=== PATIENT | female | born 1990 | race Caucasian/White ===

== ENCOUNTER 2018-08-15 07:55 | Inpatient (IN) ==
[~2018-08-15 07:55] MED LIST: Famotidine 20 MG/2 ML VIAL IVP PRN; Metoclopramide 10 MG/2 ML VIAL IVP PRN; Naloxone 0.4 MG/ML INJ IVP PRN; Ondansetron 4 MG/2 ML VIAL IVP PRN
[2018-08-15] MEDS ORDERED: Ringers Solution, Lactated 1,000 ML IVC SCH (08:00)
[2018-08-15 08:23] LABS: Basophils % 0.3 %; Eosinophils # 0.1 K/mcL (0.0-0.6); Eosinophils % 0.9 %; Hematocrit 31.1 % (35.3-44.9); Hemoglobin 9.5 g/dL (11.5-15.4); Immature Granulocytes % 1.1 % (0-4); Lymphocytes # 2.1 K/mcL (0.6-4.6); Lymphocytes % 14.6 %; Mean Corpuscular HGB Conc 30.5 g/dL (31.6-35.5); Mean Corpuscular Hemoglobin 22.8 pg (28.0-33.3); Mean Corpuscular Volume 74.8 fL (83.0-100.0); Mean Platelet Volume 10.7 fL (9.4-12.4); Monocytes # 1.4 K/mcL (0.0-1.3); Monocytes % 9.8 %; Neutrophils # 10.4 K/mcL (1.6-8.9); Platelet Count 248 K/mcL (140-400); Red Blood Count 4.16 M/mcL (3.82-4.97); Red Cell Distribution Width 16.1 % (11.5-14.5); Segmented Neutrophils % 73.3 %; White Blood Count 14.2 K/mcL (4.3-11.1)
[2018-08-15] MEDS ORDERED: Penicillin G Potassium 5,000,000 UNIT in 0.9 % Sodium Chloride Mini Bag 100 ML IVPB ONE (09:02)
[2018-08-15 09:05] LABS: Amphetamine Screen,Urine Negative ng/mL (Cutoff=1000); Barbiturate Screen,Urine Negative ng/mL (Cutoff=200)
[2018-08-15 09:06] LABS: Benzodiazepines Screen,Urine Negative ng/mL (Cutoff=300); Cannabinoid Screen,Urine Negative ng/mL (Cutoff = 50); Cocaine Screen,Urine Negative ng/mL (Cutoff= 300); Opiate Screen,Urine Negative ng/mL (Cutoff=300); Phencyclidine Screen,Urine Negative ng/mL (Cutoff=25)
[2018-08-15] MEDS ORDERED: Epidural Premix (fent/bupiv) 110 ML EP SCH (09:15)
[2018-08-15] MEDS ORDERED: *HR* FentaNYL (PF) 100 MCG/2 ML VIAL ONE (09:23)
[2018-08-15] MEDS ORDERED: Bupivacaine-MPF 0.25% 10 ML VIAL ONE (09:23)
[2018-08-15] MEDS ORDERED: Epidural Premix (fent/bupiv) 110 ML EP ONE (09:28)
--- NOTE | 2018-08-15 10:09 | Anesthesia Evaluation PreOp ---
Date of Encounter: 08/15/18 Time of Encounter: 09:13 - Past History Planned Operation: labor epidural Cardiac History: Denies any Significant Hx Pulmonary History: Former smoker (only socially smoked.) OLERICULTURIST History: Denies Any Significant HX Other Medical History: Diabetes Type II (gestational DM- diet controlled.), Other (anemia.) Anesthesia History: No Prior Anesthetic Complications, Past Anesthesia (tonsillectomy, pelvic exp. laparoscopies x2, wisdom teeth. No problems with GA. Had previous epidural x1 with last , no problems. No FHAP.) : Yes Alcohol Use: none Drug use: none Medications and Allergies Vit Calc,Iron,Folic [ Vitamins] 1 tab PO DAILY 12/30/15 [History] Ferrous Sulfate [Iron] 325 mg PO DAILY 08/15/18 [History] Allergy/AdvReac Type Severity Reaction Status Date / Time No Known Allergies Allergy Verified 12/30/15 14:51 - Meds/Allergy Pre-op Review Medications Reviewed: Yes Allergies Reviewed: Yes Beta Blockers on Current Med List: No Anesthesia Results - Labs 08/15/18 08:00 Anesthesia Exam 122/78, 72, 16. FHTs 150s. Height: 5'3" Weight: 87kg NPO (# of Hours): 6 Pain Scale: 6 Pain Scale Used: Numeric (1 - 10) - HEENT Pupil (Motor): Pupils equal Mallampati: II Teeth: Normal Oral Opening: Greater than 3 - OLERICULTURIST LOC: Oriented OLERICULTURIST Motor: Normal RUE, Normal LUE, Normal RLE, Normal LLE, Normal Face OLERICULTURIST Sensory: Normal: RUE, LUE, RLE, LLE, Face - Cardiac Rhythm: Regular - Pulmonary Breath Sounds: bilateral Clear Respiratory Effort: Symmetrical Anesthesia Assess/Plan ASA Score: 2 Level of consciousness: Cooperative, Oriented, Tranquil Anesthetic Plan: Epidural Monitoring Plan: Standard Monitors
--- NOTE | 2018-08-15 10:14 | Anesthesia Procedures ---
Date of Encounter: 08/15/18 Time of Encounter: 09:29 Procedures: Anesthesia - Epidural/Spinal Patient ID/Chart reviewed: Yes Patient examined: Yes OB Eval: Gestational age: 39 OB Eval: : 3 OB Eval: Hx Para: 1 OB Eval: Dilated at (cm): 5 OB Eval: Contractions: Non-stressed pattern Consent Obtained: Yes Supplemental Oxygen: None/Room Air Site Prep: Aseptic Technique, Sterile prep and drape, 0.5% Chlorhexidine/Alcohol Patient position: upright Local Anesthetic: Lidocaine 1% Amount of Local Anesthetic used: 3 Touhy Needle Gauge: 18 Touhy Needle Depth (cm): 6 Catheter Depth at Skin (cm): 12 Test Dose (1.5% Lido + Epi): Volume given (mls): 3 Test Dose Result: Negative Loading Dose: 0.25% Marcaine (mls): 8 Loading Dose: Fentanyl (mcg): 100 Loading Dose Administered: Thru Catheter Infusion Med: 0.125% Bupivacaine w/ 2 mcg/ml Fentanyl Infusion Rate (mls/hr): 15 (demand 4ml q 20 mins. x2 per hour.) Catheter Secured in Place: Tegaderm, Tape Interspace Used: L3-L4 Loss of Resistance (DEL): Yes Blood: No CSF: No Paresthesia: No Vitals + FHT's: Vital Signs Time 0929 0946 0950 0955 1000 BP 122/76 128/68 112/64 113/65 117/74 Pulse 72 81 77 93 94 FHTs 150 150 150 150 150
--- NOTE | 2018-08-15 11:44 | OB/GYN History & Physical ---
Date of Encounter: 08/15/18 Time of Encounter: 11:32 Assessment and Plan (1) Spontaneous onset of labor Current visit: Yes Status: Acute Pt was 4cm upon arrival to triage and progressed to 5cm quickly. She then received an epidural. Admit for expectant managment. PCN for GBS ppx. Anticipate . Admission in consultation with Dr. Hughes who is present in labor and delivery if needed. (2) 39 weeks gestation of Current visit: No Status: Acute (3) GBS (group B Streptococcus carrier), +RV culture, currently Current visit: Yes Status: Acute (4) Gestational diabetes Current visit: Yes Status: Acute Qualifiers: Gestational diabetes mellitus control: diet-controlled Trimester: third trimester Qualified Code(s): O24.410 - Gestational diabetes mellitus in , diet controlled (5) Anemia Current visit: Yes Status: Acute hgb 9.5 on admission Qualifiers: Anemia type: iron deficiency Iron deficiency anemia type: other iron deficiency Qualified Code(s): D50.8 - Other iron deficiency anemias History of Present Illness Chief complaint: labor HPI: Ms. Dior is a 28 year old female presenting at 39w2d with c/o contractions. She also reports a small gush of clear fluid earlier this am but no continued leaking. She denies bleeding or other complaints. She reports the contractions started last evening and woke her early this morning when they became stronger and more frequent. This has been complicated by GDMA1 and anemia. She reports her glucose has been well controlled. She has been ta jo iron for the anemia and denies s/sx today. B postive Rubella immune Serologies negative GBS POSITIVE Past Med Surg Social Fam HX - Past Medical History Medical history: no medical history Additional medical history: pelvic adhesions. pevic pain in female Psychiatric history: no psych history - Past Surgical History Additional surgical history: wisdom teeth removed, tonsillectomy, lap surgery to remove scar tissue around ovary x2 2013, 2014 - Social History Smoking Status: Never smoker Smokeless Tobacco Status: No Alcohol use: none Drug use: none - Family History Mother Adopted: No Living Status: Still Living Hx Family Cardiac Disorders: Yes (HTN) Hx Family Respiratory Disorders: No Hx Family Cancer: No Hx Family GI Disorders: No Hx Family Endocrine Disorder: No Hx Family Neuromuscular Disorders: No Hx Family Neurologic Disorders: No Hx Family HEENT Disorders: No Hx Family Autoimmune Disorders: No Obstetrical History - Pregnancies : 3 Para: 1 Term: 1 : 0 Ab's: 1 Livin - History/Complications History/Complications: First and was uncomplicated Medications and Allergies Vit Calc,Iron,Folic [ Vitamins] 1 tab PO DAILY 12/30/15 [History] Ferrous Sulfate [Iron] 325 mg PO DAILY 08/15/18 [History] Allergy/AdvReac Type Severity Reaction Status Date / Time No Known Allergies Allergy Verified 12/30/15 14:51 Review of System OB All systems PM: reviewed and no additional remarkable complaints except as stat ed Exam - Constitutional Constitutional: well developed, well nourished, no acute distress - HEENT HEENT: Mucus Membranes Moist - Lungs Respiratory exam: CTAB - Cardiovascular Cardiovascular exam: RRR, +S1, +S2 - Abdomen Abdomen: Present: gravid (EFW 50%tile at 34weeks by US), non tender - Extremities Extremities exam: normal inspection - Vulva Vulva: bilateral: normal - Cervix Dilation: 9 Effacement: 100 - Anus/Rectum Anus/Rectum: Present: normal perianal skin Results Result Diagrams: 08/15/18 08:00 Abnormal lab results WBC 14.2 K/mcL (4.3-11.1) H 08/15/18 08:00 Hgb 9.5 g/dL (11.5-15.4) L 08/15/18 08:00 Hct 31.1 % (35.3-44.9) L 08/15/18 08:00 MCV 74.8 fL (83.0-100.0) L 08/15/18 08:00 MCH 22.8 pg (28.0-33.3) L 08/15/18 08:00 MCHC 30.5 g/dL (31.6-35.5) L 08/15/18 08:00 RDW 16.1 % (11.5-14.5) H 08/15/18 08:00 10.4 K/mcL (1.6-8.9) H 08/15/18 08:00 1.4 K/mcL (0.0-1.3) H 08/15/18 08:00 All other labs normal. - VTE Reasons for not Prescribing Prophylaxis: Treatment not Indicated - Low risk for VTE
[2018-08-15] MEDS ORDERED: Penicillin G Potassium 2,500,000 UNIT in 0.9 % Sodium Chloride 100 ML IVPB SCH (13:00)
--- NOTE | 2018-08-15 14:03 | OB Labor Progress Note ---
Date of Encounter: 08/15/18 Time of Encounter: 14:00 Labor Progress Note - Subjective Subjective: Pt comfortable with epidural. She denies any complaints at this time. - Vital Signs Vital Signs: VSS - Cervix Cervix: 9/100/0 - Heart Tones Heart Tones: Category I - P[place]: 1-5 minutes - Interventions Interventions: AROM for moderate amount MSF, Pt repositioned to left lateral with peanut ball - Plan Plan: Continue to monitor and reposition frequently. Anticipate .
--- NOTE | 2018-08-15 15:59 | OB/GYN Procedure Note ---
Delivery - Delivery Date: 08/15/18 Provider: Rebekah Jacobs Intrapartum events: meconium Delivery induction: none Delivery augmentation: rupture of membranes Delivery monitor: external FHT, external uterine Anesthesia: epidural Quantitated Blood Loss: 100 - Infant (s) Infant A Delivery Date: 08/15/18 Infant Delivery Time: 15:37 Presentation: vertex Position: JULIANN Route of delivery: Gender: Male Viability: Viable Pounds: 7 Ounces: 10 Weight Gram: 3.46 kg at 1 minute: 8 at 5 mins: 9 Shoulder Dystocia: not encountered Specimens collected: cord blood Placenta: spontaneous Cord: nuchal cord (x1), 3 umbilical vessels, nuchal reduced - Repair Episiotomy: none Laceration Description: None - Complications Delivery complications: none Delivery comments: Pt presented in active labor and received an epidural and AROM. CNM called to room with pt complete and +2 station. She then pushed effectively to for viable male "Juan Carlos" weighing 7lbs 10oz with apgars 8 at one minute and 9 at five minutes. Then was placed on the mother's abdomen and was stimulated and bulb suctioned per nursery staff. After pulsations ceased the cord was doubly clamped and cut by the father and the placenta delivered spontaneous and intact (samantha). No lacerations noted upon inspection. EBL 100ml. Mother and baby stable in room following . FOB & 2 other family members present & supportive. - Disposition Mom disposition: stable in LDR disposition: stable in LDR
[2018-08-15] MEDS ORDERED: Oxytocin 20 units/ LR 1000 mL 20 UNIT/1,000 ML BAG IVC ONE (18:14)
[2018-08-15] MEDS ORDERED: Acetaminophen 325 MG TABLET PO PRN (19:24)
[2018-08-15] MEDS ORDERED: Lanolin 7 G OINT...G. TP PRN (19:24)
[2018-08-15] MEDS ORDERED: Oxytocin 20 units/ LR 1000 mL 20 UNIT/1,000 ML BAG IVC SCH (19:24)
[2018-08-15] MEDS ORDERED: Benzocaine/Menthol 56 GM AEROSOL SPRAY TP PRN (19:24)
[2018-08-15] MEDS: Ibuprofen 600 MG TABLET PO PRN (20:36)
[2018-08-16] MEDS: Ibuprofen 600 MG TABLET PO PRN ×3 (02:41→15:35)
[2018-08-16 08:11] VITALS: BP 115/71
[2018-08-16] MEDS ORDERED: Prenatal Vit/FA 1 EACH TABLET PO SCH (09:00)
--- NOTE | 2018-08-16 09:09 | Discharge Summary ---
Date of Encounter: 08/16/18 Time of Encounter: 09:04 - Discharge Diagnosis (1) Status post vaginal delivery Priority: Primary Status: Acute Comments: 28 y/o s/p at 39 weeks - one day reports recovering well . She sta shandra appetite returned better than with previous and toleratine regular diet. Denies BM but positive flatus. Bleeding slowed to less than when on progesterone g with out large clots. She reports history of chronic lower back pain treated by chiropractor and since epidural feeling that "back needs to pop" . She is breast feeding well. (2) Positive GBS test Priority: Secondary Status: Resolved Comments: GBS test positive treated with PCN x2 in delivery (3) Anemia Priority: Secondary Status: Acute Comments: Iron def anemia with HgB 9.5 before delivery - continue iron supplement Qualifiers: Anemia type: iron deficiency Iron deficiency anemia type: other iron deficiency Qualified Code(s): D50.8 - Other iron deficiency anemias (4) Breast feeding status of mother Priority: Primary Status: Acute Comments: Breast feeding well when baby wake. Pump already at home - support as needed (5) Chronic back pain Priority: Secondary Status: Acute Comments: Chronic low back pain worse after epidural with modest improvement with NSAIDs. - I attempted OB roll with auditory pop but minim al immediate improvement in symptoms - patient plans to follow up with PCP and chiropractor Qualifiers: Back pain location: low back pain Back pain laterality: right Sciatica presence: without sciatica Qualified Code(s): M54.5 - Low back pain; G89.29 - Other chronic pain - Discharge Medications Prescriptions: New Docusate [Colace] 100 mg PO BID #60 capsule Ibuprofen [Motrin] 600 mg PO Q6HR PRN #60 tablet PRN Reason: Cramping Breast Pump [BREAST PUMP] 1 each .ROUTE AD #1 each Continued Vit Calc,Iron,Folic [ Vitamins] 1 tab PO DAILY Ferrous Sulfate [Iron] 325 mg PO DAILY #60 tablet Home Medications: Vit Calc,Iron,Folic [ Vitamins] 1 tab PO DAILY 12/30/15 [History] Breast Pump [BREAST PUMP] 1 each .ROUTE AD #1 each 08/16/18 [Rx] Docusate [Colace] 100 mg PO BID #60 capsule 08/16/18 [Rx] Ferrous Sulfate [Iron] 325 mg PO DAILY #60 tablet 08/16/18 [Rx] Ibuprofen [Motrin] 600 mg PO Q6HR PRN #60 tablet 08/16/18 [Rx] Allergies/Adverse Reactions: Allergy/AdvReac Type Severity Reaction Status Date / Time No Known Allergies Allergy Verified 12/30/15 14:51 Data Procedures and tests throughout hospitalization: Laboratory Tests 08/15/18 08/15/18 08/15/18 08:00 08:00 08:00 WBC 14.2 H RBC 4.16 Hgb 9.5 L Hct 31.1 L MCV 74.8 L MCH 22.8 L MCHC 30.5 L RDW 16.1 H Plt Count 248 MPV 10.7 Immature Gran % 1.1 Seg Neutrophils % 73.3 Lymphocytes % 14.6 Monocytes % 9.8 Eosinophils % 0.9 Basophils % 0.3 Neutrophils # 10.4 H Lymphocytes # 2.1 Monocytes # 1.4 H Eosinophils # 0.1 Basophils # 0.0 Urine Opiates Screen Negative Ur Barbiturates Screen Negative Ur Phencyclidine Scrn Negative Ur Amphetamines Screen Negative U Benzodiazepines Scrn Negative Urine Cocaine Screen Negative U Marijuana (THC) Screen Negative Ur Drug Screen Interp See Below Blood Type B POSITIVE Labs on day of discharge: Labs from last 24 hours 08/15/18 08/15/18 08:00 08:00 Urine Opiates Screen Negative Ur Barbiturates Screen Negative Ur Phencyclidine Scrn Negative Ur Amphetamines Screen Negative U Benzodiazepines Scrn Negative Urine Cocaine Screen Negative U Marijuana (THC) Screen Negative Blood Type B POSITIVE Date of admission: 08/15/18 07:55 Primary care physician: PCP NONE Consults: 08/15/18 19:24 Consult to Carbon Paste Mixer Operator [CONS] Routine Comment: Vaginal delivery, consult needed Discharging clinician: Becky Reese Anticipated date of discharge: 08/16/18 - Patient Status Disposition: Home, Self-Care Condition: Good Functional capacity at discharge: independent ambulation Overall status at discharge: patient is progressing back to baseline - Discharge Instructions Follow Up With: Ajay Carrion DO [Partnered Physician] - Rebekah Jacobs CNM [Non-Partnered Physician] - - Diet and Activity Activity: ambulate only with your walker Diet: advance to your usual diet Hospital Course Reason for admission: active labor Delivery: Episiotomy: none Laceration: none Other procedures: none complications: none Discharge diagnosis: IUP at term delivered baby: male Hospital course: Delivery - Delivery Date: 08/15/18 Provider: Rebekah Jacobs Intrapartum events: meconium Delivery induction: none Delivery augmentation: rupture of membranes Delivery monitor: external FHT, external uterine Anesthesia: epidural Quantitated Blood Loss: 100 - (s) Infant A Infant Delivery Date: 08/15/18 Infant Delivery Time: 15:37 Presentation: vertex Position: JULIANN Route of delivery: Gender: Male Viability: Viable Pounds: 7 Ounces: 10 Weight Gram: 3.46 kg at 1 minute: 8 at 5 mins: 9 Shoulder Dystocia: not encountered Specimens collected: cord blood Placenta: spontaneous Cord: nuchal cord (x1), 3 umbilical vessels, nuchal reduced - Repair Episiotomy: none Laceration Description: None - Complications Delivery complications: none Delivery comments: Pt presented in active labor and received an epidural and AROM. CNM called to room with pt complete and +2 station. She then pushed effectively to for viable male infant "Juan Carlos" weighing 7lbs 10oz with apgars 8 at one minute and 9 at five minutes. Then infant was placed on the mother's abdomen and was stimulated and bulb suctioned per nursery staff. After pulsations ceased the cord was doubly clamped and cut by the father and the placenta delivered spontaneous and intact (samantha). No lacerations noted upon inspection. EBL 100ml. Mother and baby stable in room following . FOB & 2 other family members present & supportive. - Disposition Mom disposition: stable in LDR disposition: stable in LDR Time Attestation: Total time spent providing and/or coordinating discharge services: Time Spent: Less than 30 minutes Exam - Constitutional Vitals: Temp Pulse Resp BP Pulse Ox 98.3 F 66 16 115/71 99 08/16/18 08:09 08/16/18 08:09 08/16/18 08:09 08/16/18 08:09 08/16/18 08:09 General appearance IM: A&O X 3, pleasant, no acute distress, obese, answers questions appropriately - Respiratory Respiratory exam: Present: CTAB. Absent: wheezes - Cardiovascular Cardiovascular exam IM: Present: RRR. Absent: +S1, +S2 - GI/Abdominal GI/Abdominal exam IM: normal bowel sounds - Rectal Rectal exam: deferred - Uterine Tone: Firm Uterus Position: 1 Finger Below Umbilicus - Extremities Exam Extremities exam IM: Present: full ROM, pedal edema (trace bilat pitting), radial pulses palpable and symmetrical. Absent: calf tenderness - Neurological Exam Neurological exam: alert, oriented X3, no focal deficits Additional comments: Increased paraspinal muscle tone in lumbar region with out vertebral tenderness - Attending Attestation I examined this patient and my medical decision-making was reviewed with the Resident Physician. I agree with the documented findings, disposition and treatment plan as described. Natalia Rae CNM
== END 2018-08-16 17:46 | disposition home or self-care (01) | DRG 807 ==
LOC: 1NENULAB → 1NENUOBS 18:57
PROVIDERS: ADMIT Registered Nurse; ATTEND Registered Nurse

== ENCOUNTER 2020-04-19 00:07 | Observation (INO) ==
[2020-04-19] MEDS ORDERED: Naloxone 0.4 MG/ML INJ IVP PRN (02:59)
[2020-04-19] MEDS ORDERED: Ondansetron 4 MG/2 ML VIAL IVP PRN (02:59)
[2020-04-19] MEDS ORDERED: Acetaminophen 325 MG TABLET PO PRN (02:59)
[2020-04-19 04:30] LABS: Prothrombin Time 11.6 Seconds (9.4-12.1)
[2020-04-19 04:32] LABS: Basophils # 0.1 K/mcL (0.0-0.2); Basophils % 0.5 %; Eosinophils # 0.3 K/mcL (0.0-0.6); Eosinophils % 1.8 %; Hemoglobin 11.5 g/dL (11.5-15.4); Immature Granulocytes % 0.4 % (0-4); Lymphocytes # 4.1 K/mcL (0.6-4.6); Lymphocytes % 30.5 %; Mean Corpuscular HGB Conc 31.9 g/dL (31.6-35.5); Mean Corpuscular Hemoglobin 26.7 pg (28.0-33.3); Mean Corpuscular Volume 83.7 fL (83.0-100.0); Mean Platelet Volume 9.8 fL (9.4-12.4); Monocytes # 1.1 K/mcL (0.0-1.3); Monocytes % 8.3 %; Neutrophils # 7.9 K/mcL (1.6-8.9); Platelet Count 296 K/mcL (140-400); Red Cell Distribution Width 14.2 % (11.5-14.5); Segmented Neutrophils % 58.5 %; White Blood Count 13.6 K/mcL (4.3-11.1)
[2020-04-19 04:43] LABS: Alanine Aminotransferase 12 Units/L (7-52); Albumin 3.9 g/dL (3.5-5.7); Albumin/Globulin Ratio 1.3 (1.1-2.2); Alkaline Phosphatase 57 Units/L (34-104); Aspartate Amino Transferase 15 Units/L (13-39); BUN/Creatinine Ratio 19 (6-26); Bilirubin,Total 0.3 mg/dL (0.3-1.0); Blood Urea Nitrogen 13 mg/dL (6-20); Calcium 8.4 mg/dL (8.6-10.3); Carbon Dioxide 24 mEq/L (23-29); Chloride 105 mEq/L (98-107); Globulin 3.1 g/dL (2.4-3.5); Glucose 92 mg/dL (70-105); Osmolality,Calculated 286 (280-300); Phosphorous 3.6 mg/dL (2.7-4.5); Potassium 3.9 mEq/L (3.5-5.1); Sodium 138 mEq/L (136-145); Troponin I < 0.03 ng/mL (< 0.04); eGFR For African Americans > 60 (> 60); eGFR For Non-African Americans > 60 (> 60)
[2020-04-19 14:24] VITALS: BP 114/68
== END 2020-04-19 15:34 | disposition home or self-care (01) ==
LOC: 3ANU → SUATTDRO 02:30
PROVIDERS: ADMIT Family Medicine; ATTEND Internal Medicine